=== PATIENT | female | born 1955 | race Caucasian/White ===

== ENCOUNTER 2018-02-28 15:22 | Emergency (ER) | payer BC ==
[~2018-02-28] VITALS: Ht 172.7 cm; Wt 75.2 kg
[2018-02-28 15:35] VITALS: BP 124/54
[2018-02-28] MEDS ORDERED: IV NORMAL SALINE 500ML 500 ML IV SCH (15:45)
--- NOTE | 2018-02-28 15:51 | PHYS DOC ---
Past History Past Medical History: No Pertinent History Past Surgical History: No Surgical History Alcohol Use: None Drug Use: None Adult General Chief Complaint Chief Complaint: presyncope HPI HPI 62-year-old female presenting to the emergency department after going to a baseball game in the heat. She has not had much oral intake today once he was at a game. She felt faint and lightheaded and then fell back and hit her head. She did not lose consciousness. She denies any palpitations at the time. She denies any pain. The only symptoms she had before during and after the event is lightheadedness. She denies tongue biting or urinary incontinence. Review of systems is negative for chest pain shortness of breath abdominal pain nausea vomiting fevers or chills. All other review of systems is negative unless otherwise noted in history of present illness. ED course: 62-year-old female presenting to the emergency department today after having a presyncopal episode after being in a baseball game and heat. On arrival the patient is afebrile with a normal heart rate. She is well-appearing and is feeling much better currently. EKG obtained and reviewed by myself shows sinus rhythm with a mildly bradycardic heart rate. TN interval is mildly prolonged. ST segments are congruent. Lead V3 is not able to be interpreted due to baseline variability. CBC is normal. Chemistry panel shows mildly elevated creatinine with a normal BUN. Troponin negative. The patient was able to ambulate in the emergency department without difficulty.The patient has been examined and was not found to have an emergency medical condition. The patient was then discharged home in stable condition to follow up with their primary care physician over the next 2-3 days. They were to return if their symptoms worsened or if they were concerned for any reason. They were also instructed to return to the emergency department if they were unable to get the recommended and appropriate follow-up. [id number] discharge instructions and return precautions were given. Patient's questions were answered to their satisfaction. Patient is comfortable with plan. Review of Systems Review of Systems SEE ABOVE. Current Medications Current Medications Current Medications Medications (Trade) Dose Ordered Sig/Peg Start Time Stop Time Status Last Admin Dose Admin Sodium Chloride 500 ml @ 500 mls/hr Q1H 02/28/18 15:45 UNV Physical Exam Physical Exam SEE ABOVE Constitutional: Well developed, well nourished, no acute distress, non-toxic appearance. [] HENT: Normocephalic, atraumatic, bilateral external ears normal, oropharynx moist, no oral exudates, nose normal. [] Eyes: PERRLA, EOMI, conjunctiva normal, no discharge. [] Neck: Normal range of motion, no tenderness, supple, no stridor. [] Cardiovascular:Heart rate regular rhythm, no murmur [] Lungs & Thorax: Bilateral breath sounds clear to auscultation [] Abdomen: Bowel sounds normal, soft, no tenderness, no masses, no pulsatile masses. [] Skin: Warm, dry, no erythema, no rash. [] Back: No tenderness, no CVA tenderness. [] Extremities: No tenderness, no cyanosis, no clubbing, ROM intact, no edema. [] Neurologic: Alert and oriented X 3, normal motor function, normal sensory function, no focal deficits noted. [] Psychologic: Affect normal, judgement normal, mood normal. [] Current Patient Data Vital Signs Vital Signs Date Time Temp Pulse Resp B/P (MAP) Pulse Ox O2 Delivery O2 Flow Rate FiO2 02/28/18 15:35 97.8 62 16 99 Room Air EKG EKG [] Radiology/Procedures Radiology/Procedures [] Course & Med Decision Making Course & Med Decision Making Pertinent Labs and Imaging studies reviewed. (See chart for details) [] Dragon Disclaimer Dragon Disclaimer This electronic medical record was generated, in whole or in part, using a voice recognition dictation system. Departure Departure: Impression: Primary Impression: Light headed Additional Impressions: Dizziness Orthostatic hypotension Disposition: HOME, SELF-CARE Condition: STABLE Referrals: JALEN REYNOSO MD (PCP) Patient Instructions: Dizziness, [id number] Additional Instructions: Thank you for allowing us to participate in your care today. Return to the emergency department you have any new or worsening symptoms, or if you are concerned for any reason. Return to emergency department if you have any new or concerning symptoms including but not limited to fever, chills, nausea, vomiting, intractable pain, any new rashes, chest pain, shortness of air , uncontrolled bleeding, difficulty breathing, and/or vision loss. Follow up with your primary care physician within 3 days. Call your Primary Doctor tomorrow and inform them of your visit today. If you do not have a primary care provider we are happy to provide you with a list of our primary care providers contact information. This condition should be evaluated by your primary care physician and any recommended consulting services for continued management within 2-3 days after discharge. If at any time, you are having difficulty getting into your primary care doctor or a specialist, return to the emergency department. Problem Qualifiers LORA MERRILL MD Feb 28, 2018 15:50
[2018-02-28 16:00] LABS: BASO % 1 % (0-3); EOS # 0.1 x10^3/uL (0.0-0.7); EOS % 1 % (0-3); HEMATOCRIT 41.3 % (36.0-47.0); HEMOGLOBIN 13.9 g/dL (12.0-15.5); LYMPH # 1.3 x10^3/uL (1.0-4.8); LYMPH % 15 % (24-48); MEAN CORPUSCULAR HEMOGLOBIN 32 pg (25-35); MEAN CORPUSCULAR HGB CONC 34 g/dL (31-37); MEAN CORPUSCULAR VOLUME 94 fL (79-100); MONO # 0.5 x10^3/uL (0.0-1.1); MONO % 6 % (0-9); NEUT # 6.8 x10^3uL (1.8-7.7); NEUT % 77 % (31-73); PLATELET COUNT 243 x10^3/uL (140-400); RED CELL DISTRIBUTION WIDTH 12.4 % (11.5-14.5); WHITE BLOOD COUNT 8.8 x10^3/uL (4.0-11.0)
[2018-02-28] MEDS ORDERED: IV NORMAL SALINE 1,000ML 1,000 ML IV ONE (16:00)
[2018-02-28 16:07] LABS: CALCIUM 9.7 mg/dL (8.5-10.1); CREATININE 1.2 mg/dL (0.6-1.0); GFR 45.7; POTASSIUM 3.7 mmol/L (3.5-5.1)
--- NOTE | 2018-02-28 16:08 | RAD ---
RS Compliance Statement: One or more of the following individualized dose reduction techniques were utilized for this examination: 1. Automated exposure control 2. Adjustment of the mA and/or kV according to patient size 3. Use of iterative reconstruction technique CT head without contrast 02/28/2018 3:41 PM INDICATION: Head injury after fainting. COMPARISON: None available TECHNIQUE: Multiple axial CT images of the head were obtained from skull base through the vertex without intravenous contrast. FINDINGS: Head: Left parietal scalp hematoma is visualized measuring maximally 4 mm in thickness. Underlying calvaria is intact. Ventricles, sulci and basal cisterns are within normal limits. There is no hydrocephalus. Wilson-white matter differentiation is normal. There is no acute intracranial hemorrhage. There is no mass, mass effect or midline shift. Posterior fossa is normal in appearance. Visualized portions of the orbits are normal. Paranasal sinuses are well aerated. Mastoid air cells are well aerated. IMPRESSION: Small left parietal scalp hematoma without acute intracranial hemorrhage. Electronically signed by: Cyn Recinos MD (02/28/2018 4:05 PM) [id number]
--- NOTE | 2018-03-01 06:25 | EKG ---
[address] [address] Test Date: 2018-02-28 Test Time: 16:03:04 Pat Name: ROBBIE MOREJON Department: Room: Gender: F [employer] Equipment Operator: HOLLIE : 1955 Requested By: LORA MERRILL Order Number: [id number] Reading MD: Measurements Intervals [place] Rate: 54 P: 43 HI: 222 QRS: 9 QRSD: 74 T: 56 QT: 440 QTc: 419 Interpretive Statements SINUS RHYTHM PROLONGED HI INTERVAL QRS(T) CONTOUR ABNORMALITY CONSIDER ANTEROLATERAL MYOCARDIAL DAMAGE ABNORMAL ECG RI6.01 No previous ECG available for comparison
== END 2018-02-28 16:43 | disposition home or self-care (01) ==
LOC: ER 15:22
DX: R42 Dizziness and giddiness (principal); I95.1 Orthostatic hypotension; W18.09XA Striking against other object with subsequent fall, initial encounter; Y93.64 Activity, baseball; Y99.8 Other external cause status; Y92.89 Other specified places as the place of occurrence of the external cause
CPT/HCPCS: 36415; 70450; 80048; 84484; 85025; 93005; 96360; 99285-25; J7030

== ENCOUNTER 2018-05-24 14:05 | Emergency (ER) | payer BC ==
[~2018-05-24] VITALS: Ht 165.1 cm; Wt 73.0 kg
--- NOTE | 2018-05-24 14:28 | PHYS DOC ---
Past History Past Medical History: No Pertinent History Past Surgical History: Other Additional Past Surgical Histo: d and c many years ago Alcohol Use: None Drug Use: None Adult General Chief Complaint Chief Complaint: MECHANICAL FALL HPI HPI 62-year-old female who presents the emergency department after slipping and sustaining a mechanical fall and injuring her left shoulder. She has a pain in her shoulder that is worse when she moves it. She denies any numbness weakness or tingling. The pain is a sharp shooting pain that is nonradiating constant and without alleviating factors. Review of systems is negative for chest pain shortness of breath loss of consciousness neck pain abdominal pain hip pain. She was able to ambulate after the event. All other review of systems is negative unless otherwise noted in history of present illness. ED course: 62-year-old female presenting the emergency department today after sustaining a humeral head fracture with displacement of the greater tuberosity. I spoke with Dr. Champagne who stated he could see the patient tomorrow for surgical repair. We placed the patient in a sling in the interim for comfort and immobilization. We will discharge patient home with oral pain medication.The patient has been examined and was not found to have an emergency medical condition. The patient was then discharged home in stable condition to follow up with ortho tomorrow for surgical repair. I confirmed the patient's phone numbers and communicated them to Dr. Champagne so his office could get a hold of them for further instructions prior to surgery. They were to return if their symptoms worsened or if they were concerned for any reason. They were also instructed to return to the emergency department if they were unable to get the recommended and appropriate follow-up. [id number] discharge instructions and return precautions were given. Patient's questions were answered to their satisfaction. Patient is comfortable with plan. Review of Systems Review of Systems SEE ABOVE. Allergies Allergies Allergies Coded Allergies Type Severity Reaction Last Updated Verified No Known Drug Allergies 02/28/18 No Physical Exam Physical Exam SEE ABOVE Constitutional: Well developed, well nourished, no acute distress, non-toxic appearance. [] HENT: Normocephalic, atraumatic, bilateral external ears normal, oropharynx moist, no oral exudates, nose normal. Eyes: PERRLA, EOMI, conjunctiva normal, no discharge. [] Neck: Normal range of motion, no tenderness, supple, no stridor. Cardiovascular:Heart rate regular rhythm, no murmur [] Lungs & Thorax: Bilateral breath sounds clear to auscultation Abdomen: Bowel sounds normal, soft, no tenderness, no masses, no pulsatile masses. Skin: Warm, dry, no erythema, no rash. [] Back: No tenderness, no CVA tenderness. [] Extremities: On examination of the left shoulder she has no tenderness along the clavicle or before meals joint. She is tender along the humeral head with pain with passive range of motion even with minimal range of motion of the left shoulder. Elbow is nontender. Nontender of the radial head. No pain with passive range of motion between supination and pronation. Nontender wrist. The remainder the extremities are nontender with normal neurovascular status. Neurologic: Alert and oriented X 3, normal motor function, normal sensory function, no focal deficits noted. [] Psychologic: Affect normal, judgement normal, mood normal. Current Patient Data Vital Signs Vital Signs Date Time Temp Pulse Resp B/P (MAP) Pulse Ox O2 Delivery O2 Flow Rate FiO2 05/24/18 14:10 97.8 48 16 99 Room Air EKG EKG [] Radiology/Procedures Radiology/Procedures [] Course & Med Decision Making Course & Med Decision Making Pertinent Labs and Imaging studies reviewed. (See chart for details) [] Dragon Disclaimer Dragon Disclaimer This electronic medical record was generated, in whole or in part, using a voice recognition dictation system. Departure Departure: Impression: Primary Impression: Fracture of humeral head, closed Disposition: 01 HOME, SELF-CARE Condition: STABLE Referrals: JALEN REYNOSO MD (PCP) Patient Instructions: Humerus Fracture, Treated with Open Reduction Additional Instructions: Thank you for allowing us to participate in your care today. Return to the emergency department you have any new or worsening symptoms, or if you are concerned for any reason. Return to emergency department if you have any new or concerning symptoms including but not limited to fever, chills, nausea, vomiting, intractable pain, any new rashes, chest pain, shortness of air , uncontrolled bleeding, difficulty breathing, and/or vision loss. Follow up with your primary care physician within 3 days. Call your Primary Doctor tomorrow and inform them of your visit today. If you do not have a primary care provider we are happy to provide you with a list of our primary care providers contact information. This condition should be evaluated by your primary care physician and any recommended consulting services for continued management within 2-3 days after discharge. If at any time, you are having difficulty getting into your primary care doctor or a specialist, return to the emergency department. You may have been prescribed medication or given medication in the emergency department that can change in your level of thinking and ability to operate machinery. Many prescribed medications can cause this. Some commonly prescribed medications include hydrocodone, ativan, and benadryl. Be sure to check with your pharmacist and ask if the medications you've prescribed can affect your level of consciousness. I recommend not operating heavy machinery or driving while on medication such as these. Scripts Hydrocodone Bit/Acetaminophen (HYDROCODONE-APAP 5-325 ) 1 Each Tablet 1 TAB PO PRN Q6HRS PRN for PAIN, #10 TAB 0 Refills Prov: LORA MERRILL MD 05/24/18 LORA MERRILL MD May 24, 2018 14:28
--- NOTE | 2018-05-24 14:37 | RAD ---
EXAM: Left shoulder, 2 views. HISTORY: Fall. COMPARISON: None. FINDINGS: 2 views of the left shoulder obtained. There is a displaced fracture of the humeral head with involvement of the greater tuberosity. 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 IMPRESSION: Displaced humeral head fracture with involvement of the greater tuberosity. Electronically signed by: Janeth Wagoner MD (05/24/2018 2:34 PM) [facility]
[2018-05-24] MEDS ORDERED: HYDROcodone/APAP 5/325MG 1 TAB TABLET PO ONE (14:45)
[2018-05-24] MEDS ORDERED: IBUPROFEN 400 MG TABLET. PO ONE (14:45)
[2018-05-24 15:04] VITALS: BP 109/57
[2018-05-24] MEDS ORDERED: HYDR-2758 PO (15:41)
== END 2018-05-24 15:49 | disposition home or self-care (01) ==
LOC: ER 14:05
DX: S42.292A Other displaced fracture of upper end of left humerus, initial encounter for closed fracture (principal); W01.0XXA Fall on same level from slipping, tripping and stumbling without subsequent striking against object, initial encounter; Y93.89 Activity, other specified; Y92.89 Other specified places as the place of occurrence of the external cause; Y99.8 Other external cause status
CPT/HCPCS: 73030; 99284